=== PATIENT | female | born 1980 | race Caucasian/White ===

== ENCOUNTER → 2020-07-09 | Outpatient (CLI) | payer BC | LOC: US 10:08 | PROVIDERS: ATTEND Internal Medicine Gastroenterology | DX: K74.60 Unspecified cirrhosis of liver (principal) | CPT/HCPCS: 76705 ==

== ENCOUNTER → 2020-10-20 | Emergency (ER) | payer OTHER | END | disposition left against medical advice (07) | LOC: ER 21:31 | DX: R10.9 Unspecified abdominal pain (principal) ==